=== PATIENT | female | born 1950 | race Caucasian/White ===

== ENCOUNTER 2018-05-06 09:06 | Outpatient (CLI) | payer MEDICARE, OTHER ==
--- NOTE | 2018-05-06 14:22 | XRAY Report ---
Procedure Date: 05/06/2018 Accession Number: [id number] / [id number] Procedure: XR - Foot 3 View BILAT CPT Code: FULL RESULT: EXAMS: 1. Right Foot Radiography 2. Left Foot Radiography EXAM DATE: 05/06/2018 09:33 AM. CLINICAL HISTORY: Bilateral first MTP joint pain. COMPARISON: None. TECHNIQUE: 3 views each foot. 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 Bipartite medial great toe sesamoid. No fracture or bone lesion. Joints: Hallux valgus with associated mild lateral subluxation at the first MTP joint. Osteophytosis along the first metatarsal head, including a prominent dorsal osteophyte. Soft Tissues: Unremarkable. 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 No fracture or bone lesion. Joints: Hallux valgus. Mild joint space loss, osteophytosis, and subchondral degenerative changes at the first MTP joint, compatible with osteoarthritis. Soft Tissues: Unremarkable. IMPRESSION: 1. Hallux valgus, right greater than left, with associated degenerative changes at the first MTP joints bilaterally. 2. No acute bony abnormality. RADIA
== END 2018-05-06 09:07 | disposition home or self-care (01) ==
LOC: DI 09:06
PROVIDERS: ATTEND Podiatrist
DX: M19.072 Primary osteoarthritis, left ankle and foot (principal); M19.071 Primary osteoarthritis, right ankle and foot; M20.12 Hallux valgus (acquired), left foot; M20.11 Hallux valgus (acquired), right foot

== ENCOUNTER 2018-05-14 10:31 | Outpatient (CLI) | payer MEDICARE, OTHER ==
--- NOTE | 2018-05-15 14:54 | Mammography Report ---
Procedure Date: 05/14/2018 Accession Number: [id number] / [id number] Procedure: MGS - Screening Mammo Dig Bilat CPT Code: FULL RESULT: EXAM: Screening Mammo Dig Bilat DATE: 05/14/2018 11:01 AM CLINICAL HISTORY: 67-year-old nulliparous patient with family history of breast cancer for screening TECHNIQUE: Bilateral CC and MLO views were obtained. COMPARISON: 09/05/2016, 05/31/2015, 05/10/2013, 05/11/2012, 04/24/2012, 05/10/2011, 03/29/2010 FINDINGS: The breasts demonstrate heterogeneously dense fibroglandular parenchyma bilaterally. Punctate, typically benign calcifications are present. No suspicious masses, clustered microcalcifications, or regions of architectural distortion are identified. IMPRESSION: Benign findings RECOMMENDATION: Routine annual screening unless otherwise clinically indicated. BIRADS CATEGORY 2: Benign findings STANDARD QUALIFYING STATEMENTS: 1. This examination was reviewed with the aid of Computer-Aided Detection (CAD). 2. A negative or benign imaging report should not delay biopsy if clinically suspicious findings are present. Consider surgical consultation if warrented. More than 5% of cancers are not identified by imaging. 3. Dense breasts may obscure an underlying neoplasm.
== END 2018-05-14 10:32 | disposition home or self-care (01) ==
LOC: DI.S 10:31
PROVIDERS: ATTEND Physician Assistant
DX: Z12.31 Encounter for screening mammogram for malignant neoplasm of breast (principal)
CPT/HCPCS: 77067

== ENCOUNTER 2019-05-19 14:05 | Outpatient (CLI) | payer MEDICARE, OTHER ==
--- NOTE | 2019-05-19 14:58 | XRAY Report ---
Reason: PERSONAL HISTORY OF PNEUMONIA Procedure Date: 05/19/2019 Accession Number: [id number] / [id number] Procedure: XRS - Chest 2 View X-Ray CPT Code: 98320 FULL RESULT: EXAM: CHEST RADIOGRAPHY EXAM DATE: 05/19/2019 02:35 PM. CLINICAL HISTORY: PERSONAL HISTORY OF PNEUMONIA. Cough COMPARISON: None. TECHNIQUE: 2 views. FINDINGS: Lungs/Pleura: There is an ovoid 1 cm nodule projected between the second third right anterior ribs and between the right fifth and sixth posterior ribs. No other focal opacities evident. No pleural effusion. No pneumothorax. Normal volumes. Mediastinum: Heart and mediastinal contours are unremarkable. Other: Negative bony structures for age. IMPRESSION: Ovoid right upper lobe nodule. Suggest comparison with old films. If none are available suggest follow-up by repeat chest x-ray in 4-6 weeks or non[address] chest CT. RADIA
== END 2019-05-19 14:06 | disposition home or self-care (01) ==
LOC: DI.S 14:05
PROVIDERS: ATTEND Family Medicine
DX: R91.1 Solitary pulmonary nodule (principal); Z87.01 Personal history of pneumonia (recurrent)
CPT/HCPCS: 71046

== ENCOUNTER 2019-05-19 14:09 | Outpatient (CLI) | payer MEDICARE, OTHER ==
--- NOTE | 2019-05-21 14:25 | Mammography Report ---
Reason: SCREENING MAMMO Procedure Date: 05/19/2019 Accession Number: [id number] / [id number] Procedure: MGS - Screening Mammo Dig Bilat CPT Code: FULL RESULT: EXAM: Screening Mammo Dig Bilat DATE: 05/19/2019 2:40 PM CLINICAL HISTORY: Routine screening TECHNIQUE: (B) - Bilateral CC and MLO views were obtained. COMPARISON: 05/14/2018, 09/05/2016, 05/31/2015 and 05/10/2013 PARENCHYMAL PATTERN: (D) - The breasts demonstrate heterogeneously dense fibroglandular parenchyma bilaterally. FINDINGS: No significant interval change. There are no suspicious masses, calcifications, or areas of distortion. IMPRESSION: Negative examination. BI-RADS category 1. RECOMMENDATION: (ANNUAL) - Recommend routine annual screening mammography. BI-RADS CATEGORY: (1) - Negative. STANDARD QUALIFYING STATEMENTS: 1. This examination was not reviewed with the aid of Computer-Aided Detection (CAD). 2. A negative or benign imaging report should not preclude biopsy if clinically suspicious findings are present. 3. Dense breasts may obscure an underlying neoplasm. 4. This examination was reviewed without the aid of 3D breast imaging (tomosynthesis).
== END 2019-05-19 14:10 | disposition home or self-care (01) ==
LOC: DI.S 14:09
DX: Z12.31 Encounter for screening mammogram for malignant neoplasm of breast (principal)
CPT/HCPCS: 77067

== ENCOUNTER 2019-05-29 10:46 | Outpatient (CLI) | payer MEDICARE, OTHER ==
--- NOTE | 2019-05-30 15:02 | CT Report ---
Reason: SOLITARY NODULE OF LUNG Procedure Date: 05/29/2019 Accession Number: [id number] / [id number] Procedure: CT - CHEST WO CPT Code: FULL RESULT: EXAM: CT CHEST EXAM DATE: 05/29/2019 11:13 AM. CLINICAL HISTORY: SOLITARY NODULE OF LUNG. COMPARISONS: CHEST 2 VIEW 05/19/2019 2:16 PM. TECHNIQUE: Routine helical CT imaging was performed through the chest. IV contrast: None. Reconstructions: Coronal and sagittal. In accordance with CT protocol optimization, one or more of the following dose reduction techniques were utilized for this exam: automated exposure control, adjustment of mA and/or KV based on patient size, or use of iterative reconstructive technique. FINDINGS: Lungs/Pleura: There is a 0.8 cm pulmonary nodule within the right upper lobe (image 20 series 4). No other nodules are seen. There is no evidence of consolidation or effusion. No evidence of subpleural reticulation of bronchiectasis. No architectural distortion. No acute central airway abnormalities. No pneumothorax. Mediastinum: Normal. No adenopathy or masses. The heart and great vessels are normal. Bones: Unremarkable. Visualized Abdomen: Unremarkable. Other: None. IMPRESSION: 1. There is a 0.8 cm pulmonary nodule within the right upper lobe. Per current Fleischner Society recommendations, interval chest CT in 3-6 months could be used for further evaluation of this finding. 2. No other nodules are seen. 3. No acute pulmonary CT process. 4. Normal heart size. No enlarged thoracic lymph nodes. RADIA
== END 2019-05-29 10:47 | disposition home or self-care (01) ==
LOC: DI 10:46
PROVIDERS: ATTEND Family Medicine
DX: R91.1 Solitary pulmonary nodule (principal)
CPT/HCPCS: 71250

== ENCOUNTER 2019-08-19 10:51 | Outpatient (CLI) | payer MEDICARE, OTHER ==
--- NOTE | 2019-08-19 12:50 | CT Report ---
Reason: LUNG NODULE, SOLITARY Procedure Date: 08/19/2019 Accession Number: [id number] / [id number] Procedure: CT - CHEST WO CPT Code: FULL RESULT: EXAM: CT CHEST EXAM DATE: 08/19/2019 12:02 PM. CLINICAL HISTORY: LUNG NODULE, SOLITARY. COMPARISONS: CHEST W/O 05/29/2019 11:17 AM. TECHNIQUE: Routine helical CT imaging was performed through the chest. IV contrast: None. Reconstructions: Coronal and sagittal. In accordance with CT protocol optimization, one or more of the following dose reduction techniques were utilized for this exam: automated exposure control, adjustment of mA and/or KV based on patient size, or use of iterative reconstructive technique. FINDINGS: Lungs/Pleura: When compared to May 2019, there is been no change in the round fairly sharply mage donated 8 x 9 mm diameter noncalcified nodule in the anterior right upper lobe. The lungs are otherwise clear. No pleural effusions. Mediastinum: Normal. No adenopathy or masses. The heart and great vessels are normal. Bones: Unremarkable. Visualized Abdomen: Unremarkable. Other: None. IMPRESSION: 1. There has been no change in the indeterminate round noncalcified 9 mm maximal diameter right upper lobe pulmonary nodule. Comparison to older studies would be beneficial. If none are available, consider PET/CT for further evaluation. 2. Otherwise negative examination. RADIA
== END 2019-08-19 10:52 | disposition home or self-care (01) ==
LOC: DI 10:51
DX: R91.1 Solitary pulmonary nodule (principal)
CPT/HCPCS: 71250

== ENCOUNTER 2020-05-06 10:45 | Outpatient (CLI) | payer MEDICARE, OTHER ==
--- NOTE | 2020-05-06 12:10 | CT Report ---
PROCEDURE: CHEST WO INDICATIONS: SOLITARY NODULE OF LUNG TECHNIQUE: Noncontrast 5 mm thick sections acquired from the pulmonary apices to the posterior costophrenic angl es. 7 mm thick coronal and sagittal MIP reformats were then acquired. For radiation dose reduction, the following was used: automated exposure control, adjustment of mA and/or kV according to patient size. COMPARISON: 08/19/2019 and 05/29/2019 FINDINGS: Image quality: Excellent. Lungs and pleura: Compared to prior studies, patient's known 9 mm right upper lobe nodule remains un changed in size and appearance series 4 image 101. There is no new pulmonary nodule or mass. No acute air space opacities. No pleural effusions or pneumothorax. Central and peripheral airways are lehman nt and normal in caliber. Mediastinum: Heart size is normal. No pericardial effusion. No mediastinal adenopathy by size crit eria. Thoracic aorta and central pulmonary arteries are normal in size. Esophagus is normal in rigo soraya. There is a small hiatal hernia. Bones and chest wall: No suspicious bony lesions. No vertebral body compression fractures. No axil vito or supraclavicular adenopathy by size criteria. The thyroid is normal in size. Abdomen: Visualized upper abdominal solid organs and bowel loops appear normal in the absence of con trast. IMPRESSION: 1. 9 mm right upper lobe nodule remains stable and is suggestive of benign process. Additional follow -up in 12 month is recommended. 2. No new pulmonary nodule or mass. Bilateral lungs are otherwise clear. 3. Small hiatal hernia. Reviewed by: Maik Winkler MD on 05/06/2020 12:08 PM PDT Approved by: Maik Winkler MD on 05/06/2020 12:08 PM PDT Station ID: [id number]
== END 2020-05-06 10:46 | disposition home or self-care (01) ==
LOC: DI 10:45
PROVIDERS: ATTEND Nurse Practitioner Family
DX: R91.1 Solitary pulmonary nodule (principal)
CPT/HCPCS: 71250

== ENCOUNTER 2020-07-12 15:24 | Outpatient (CLI) | payer MEDICARE, OTHER ==
--- NOTE | 2020-07-19 12:08 | Mammography Report ---
BILATERAL DIGITAL SCREENING MAMMOGRAM 3D/2D: 07/12/2020 CLINICAL: Routine screening. Comparison is made to exams dated: 05/19/2019 mammogram, 05/14/2018 mammogram, 09/05/2016 mammogram, mammogram, and 05/10/2013 mammogram - [facility]. The tissue of both breast s is heterogeneously dense. This may lower the sensitivity of mammography. There is a focal asymmetry in the right breast at 11 o'clock posterior depth. No other significant masses, calcifications, or other findings are seen in either breast. IMPRESSION: INCOMPLETE: NEEDS ADDITIONAL IMAGING EVALUATION The focal asymmetry in the right breast is indeterminate. Additional views with possible ultrasound are recommended. This exam was interpreted at Station ID: [id number]. NOTE: For mammograms, a report in lay terms will be sent to the patient. Approximately 15% of breast malignancies will not be visualized mammographically. In the management of a palpable breast mass, a negative mammogram must not discourage biopsy of a clinically suspicious lesion. Electronically Signed By: Lindsey fonseca/patricia:07/18/2020 16:52:20 ACR BI-RADS Category 0: Incomplete 3340F PARENCHYMAL PATTERN: (D) - The breast(s) demonstrate(s) heterogeneously dense fibroglandular halie villafuerte. BI-RADS CATEGORY: (0) - 0 Mammo and [place] [id number] Immediate follow-up LATERALITY: (B)
== END 2020-07-12 15:25 | disposition home or self-care (01) ==
LOC: DI 15:24
DX: Z12.31 Encounter for screening mammogram for malignant neoplasm of breast (principal); R92.8 Other abnormal and inconclusive findings on diagnostic imaging of breast
CPT/HCPCS: 77063; 77067

== ENCOUNTER 2020-08-15 11:02 | Outpatient (CLI) | payer MEDICARE, OTHER ==
--- NOTE | 2020-08-15 13:26 | Mammography Report ---
UNILATERAL RIGHT DIGITAL DIAGNOSTIC MAMMOGRAM 3D/2D: 08/15/2020 CLINICAL: Additional evaluation requested from prior study. Patient returns today to evaluate a focal asymmetry in the right breast. Comparison is made to exams dated: 07/12/2020 mammogram, 05/19/2019 mammogram, 05/14/2018 mammogram, and 09/05/2016 mammogram - [facility]. The tissue of right breast is heterogeneously dense. This may lower the sensitivity of mammography. The previously seen focal asymmetry in the right breast disperses on spot compression views, compatib le with normal fibroglandular breast tissue. No significant masses, calcifications, or other findings are seen in the breast. IMPRESSION: NEGATIVE There is no mammographic evidence of malignancy. A 1 year screening mammogram is recommended. This exam was interpreted at Station ID: [id number]. NOTE: For mammograms, a report in lay terms will be sent to the patient. Approximately 15% of breast malignancies will not be visualized mammographically. In the management of a palpable breast mass, a negative mammogram must not discourage biopsy of a clinically suspicious lesion. Electronically Signed By: Norm curtis/patricia:08/15/2020 11:30:02 ACR BI-RADS Category 1: Negative 3341F PARENCHYMAL PATTERN: (D) - The breast(s) demonstrate(s) heterogeneously dense fibroglandular halie villafuerte. BI-RADS CATEGORY: (1) - 1 RECOMMENDATION: (ANNUAL) - Recommend routine annual screening mammography. [id number] 1 year screening LATERALITY: (B)
== END 2020-08-15 11:03 | disposition home or self-care (01) ==
LOC: DI 11:02
PROVIDERS: ATTEND Family Medicine
DX: R92.8 Other abnormal and inconclusive findings on diagnostic imaging of breast (principal)